=== PATIENT | male | born 1965 | race Caucasian/White ===

== ENCOUNTER 2020-07-24 22:33 | Emergency (ER) | payer SELFPAY ==
[~2020-07-24] VITALS: Ht 180.3 cm; Wt 77.1 kg
[2020-07-25 03:05] VITALS: BP 163/91
== END 2020-07-25 03:43 | disposition left against medical advice (07) ==
LOC: EDBD 22:33 → ER 22:43
DX: S32.018A Other fracture of first lumbar vertebra, initial encounter for closed fracture (principal); S32.028A Other fracture of second lumbar vertebra, initial encounter for closed fracture; S32.19XA Other fracture of sacrum, initial encounter for closed fracture; V49.59XA Passenger injured in collision with other motor vehicles in traffic accident, initial encounter; Y93.89 Activity, other specified; Y92.488 Other paved roadways as the place of occurrence of the external cause; Y99.8 Other external cause status
CPT/HCPCS: 72131; 74176; 99285; J7030

== ENCOUNTER 2023-02-17 19:44 | Inpatient (IN) | payer SELFPAY ==
[~2023-02-17] VITALS: Ht 172.7 cm; Wt 88.9 kg
[2023-02-17 20:15] VITALS: PULSE 106; RESP 20; O2SAT 94
[2023-02-17] MEDS ORDERED: LORazepam 2MG/ML-1ML VIAL IV ONE (20:15)
[2023-02-17] MEDS ORDERED: levETIRAcetam 1000 mg/100ml 100 ML IV ONE (20:15)
[2023-02-17] MEDS ORDERED: SODIUM CHLORIDE 0.9% 1,000 ML IVB ONE (20:15)
[2023-02-17 20:24] LABS: Basophils # (auto) 0.1 10 ^3/uL (0-0.2); Basophils % (auto) 0.6 % (0.0-2.0); Eosinophils # (auto) 0.6 10 ^3/uL (0-0.8); Hemoglobin 15.6 g/dL (13.5-17.5)
[2023-02-17 20:26] LABS: Eosinophils % (auto) 3.1 % (0.0-7.0); Hematocrit 48.3 % (41.0-53.0); Lymphocytes # (auto) 4.7 10 ^3/uL (0.4-5.4); Lymphocytes % (auto) 26.1 % (10.0-50.0); Mean Corpuscular Hemoglobin 26.5 pg (28.0-32.0); Mean Corpuscular Hgb Conc. 32.3 g/dL (32.0-36.0); Mean Corpuscular Volume 82.1 fL (80.0-100.0); Monocytes # (auto) 1.9 10 ^3/uL (0-1.3); Monocytes % (auto) 10.5 % (0.0-12.0); Neutrophils # (auto) 10.8 10 ^3/uL (1.6-8.6); Neutrophils % (auto) 59.7 % (37.0-80.0); Nucleated Red Blood Cells % 0.2 %; Red Blood Cells 5.89 10^6/uL (4.5-5.90); Red Cell Distribution Width 14.2 % (11.8-14.3)
[2023-02-17 20:50] LABS: Alanine Aminotransferase 17 U/L (7-40); Albumin 4.5 g/dL (3.2-4.8); Alkaline Phosphatase 71 U/L (46-116); Anion Gap 9 (5-15); Aspartate Aminotransferase 19 U/L (13-40); BUN/Creatinine Ratio 11.8 (10.0-20.0); Bilirubin, Total 0.9 mg/dL (0.2-1.0); Blood Urea Nitrogen 16 mg/dL (9-23); Calcium 8.9 mg/dL (8.7-10.4); Carbon Dioxide 26 mmol/L (20-30); Chloride 105 mmol/L (98-107); Glucose 132 mg/dL (74-106); Magnesium 2.1 mg/dL (1.6-2.6); Potassium 3.6 mmol/L (3.5-5.1); Sodium 140 mmol/L (136-145); Total Protein 7.3 g/dL (5.7-8.2)
[2023-02-17 20:52] LABS: Partial Thromboplastin Time 25.5 SEC (24.5-34.5); Prothrombin Time 10.5 sec (9.3-11.8)
[2023-02-18] MEDS ORDERED: VANCOMYCIN PER PHARMACY 0 MG IV SCH (00:15)
[2023-02-18] MEDS ORDERED: ASPirin 81 mg TAB PO ONE (00:15)
[2023-02-18] MEDS ORDERED: DOCUSATE SOD 100 MG CAP PO PRN (00:15)
[2023-02-18] MEDS ORDERED: cefTRIAXone 1GM/50ML D5W 50 ML IV ONE (00:15)
[2023-02-18] MEDS ORDERED: ONDANSETRON HCL 4 MG/2 ML VIAL IV PRN (00:15)
[2023-02-18] MEDS ORDERED: HYDROcodone-ACET 5/325MG TAB PO PRN (00:15)
[2023-02-18] MEDS ORDERED: hydrALAZINE HCL 20 MG/ML VL IV PRN (00:15)
[2023-02-18] MEDS ORDERED: ACETAMINOPHEN 325 MG TAB PO PRN (00:15)
[2023-02-18] MEDS ORDERED: VANCOMYCIN 1GM/250ML 250 ML IV SCH (00:30)
[2023-02-18] MEDS ORDERED: MORPHINE SULFATE INJ 2 MG/ml SYRG IV PRN (01:45)
[2023-02-18] MEDS ORDERED: NITROGLYCERIN 0.4 MG SL TAB SL PRN (01:45)
[2023-02-18] MEDS: SODIUM CHLOR 0.9% PF (SALINE LOCK) 10ML VIAL/SYR IV SCH ×3 (05:56→21:49)
[2023-02-18 06:40] LABS: Basophils # (auto) 0.1 10 ^3/uL (0-0.2); Basophils % (auto) 0.7 % (0.0-2.0); Eosinophils # (auto) 0.4 10 ^3/uL (0-0.8); Mean Corpuscular Volume 82.1 fL (80.0-100.0); White Blood Cell 11.9 10^3/uL (4.4-10.8)
[2023-02-18 06:44] LABS: Eosinophils % (auto) 3.5 % (0.0-7.0); Hematocrit 42.7 % (41.0-53.0); Lymphocytes # (auto) 2.4 10 ^3/uL (0.4-5.4); Lymphocytes % (auto) 20.1 % (10.0-50.0); Mean Corpuscular Hgb Conc. 32.9 g/dL (32.0-36.0); Monocytes # (auto) 1.2 10 ^3/uL (0-1.3); Monocytes % (auto) 10.1 % (0.0-12.0); Neutrophils # (auto) 7.8 10 ^3/uL (1.6-8.6); Neutrophils % (auto) 65.6 % (37.0-80.0); Red Cell Distribution Width 14.1 % (11.8-14.3)
[2023-02-18 07:18] LABS: Urine Bacteria NONE SEEN /hpf (None Seen); Urine Blood Negative /uL (Negative); Urine Clarity Clear (Clear); Urine Color Yellow (Yellow); Urine Hyaline Cast FEW /lpf (0 - 2); Urine Mucus FEW (None Seen); Urine Protein, UAD TRACE (Negative); Urine Specific Gravity 1.021 (1.001-1.035); Urine Urobilinogen Normal (Negative); Urine WBC 7 /hpf (0 - 3); Urine pH 5.5 (5.0-8.0)
[2023-02-18 07:40] VITALS: PULSE 66; RESP 12; O2SAT 96
[2023-02-18 07:46] LABS: Amphetamine Screen, Urine Pos (NEGATIVE); Barbiturate Scree,Urine Neg (NEGATIVE); Benzodiazephine Screen, Urine Neg (NEGATIVE); Cocaine Screen, Urine Neg (NEGATIVE)
[2023-02-18 07:47] LABS: Cannabinoid Screen, Urine Pos (NEGATIVE); Opiate Scree,Urine Neg (NEGATIVE); Phencyclidine Screen, Urine Neg (NEGATIVE)
[2023-02-18 07:57] LABS: Alanine Aminotransferase 13 U/L (7-40); Albumin 3.6 g/dL (3.2-4.8); Alkaline Phosphatase 58 U/L (46-116); Anion Gap 8 (5-15); Aspartate Aminotransferase 16 U/L (13-40); BUN/Creatinine Ratio 14.7 (10.0-20.0); Bilirubin, Total 0.6 mg/dL (0.2-1.0); Blood Urea Nitrogen 15 mg/dL (9-23); Calcium 8.3 mg/dL (8.5-10.1); Carbon Dioxide 23 mmol/L (20-30); Chloride 112 mmol/L (98-107); Glucose 94 mg/dL (74-106); Potassium 3.7 mmol/L (3.5-5.1); Sodium 143 mmol/L (136-145)
[2023-02-18] MEDS: ASPirin 81 mg TAB PO SCH (11:56)
[2023-02-18] MEDS: levETIRAcetam 1000 mg/100ml 100 ML IV SCH ×2 (11:58→21:48)
[2023-02-18] MEDS: AZITHROMYCIN 500MG/ 250ML 250 ML IV SCH (12:20)
[2023-02-18] MEDS: VANCOMYCIN 750mg/250ml 250 ML IV SCH (13:34)
[2023-02-18 18:36] VITALS: BP 116/80; PULSE 93; RESP 18; TEMP 97.7; O2SAT 95
[2023-02-18] MEDS ORDERED: TAMS-35 PO (19:21)
[2023-02-18] MEDS ORDERED: LORazepam 2MG/ML-1ML VIAL IV PRN (19:30)
[2023-02-18 20:00] VITALS: PULSE 76; PULSE 77; RESP 18; O2SAT 93
[2023-02-18 22:00] VITALS: BP 116/80; PULSE 76; RESP 18; TEMP 97.9; O2SAT 93
[2023-02-19] VITALS (7 sets, daily range): BP systolic 114–129; BP diastolic 69–80; PULSE 65–89; RESP 16–20; TEMP 98–98.6; O2SAT 92–96
[2023-02-19] MEDS: VANCOMYCIN 750mg/250ml 250 ML IV SCH ×2 (01:00→15:38)
[2023-02-19] MEDS: SODIUM CHLOR 0.9% PF (SALINE LOCK) 10ML VIAL/SYR IV SCH ×3 (06:24→21:50)
[2023-02-19 06:57] LABS: Basophils # (auto) 0.1 10 ^3/uL (0-0.2); Basophils % (auto) 0.6 % (0.0-2.0); Eosinophils # (auto) 0.5 10 ^3/uL (0-0.8); Eosinophils % (auto) 5.3 % (0.0-7.0); Hematocrit 43.1 % (41.0-53.0); Hemoglobin 14.1 g/dL (13.5-17.5); Lymphocytes # (auto) 1.8 10 ^3/uL (0.4-5.4); Lymphocytes % (auto) 19.7 % (10.0-50.0); Mean Corpuscular Hgb Conc. 32.8 g/dL (32.0-36.0); Mean Corpuscular Volume 82.3 fL (80.0-100.0); Monocytes # (auto) 0.9 10 ^3/uL (0-1.3); Monocytes % (auto) 9.6 % (0.0-12.0); Neutrophils # (auto) 6.1 10 ^3/uL (1.6-8.6); Neutrophils % (auto) 64.8 % (37.0-80.0); Red Blood Cells 5.24 10^6/uL (4.5-5.90); White Blood Cell 9.4 10^3/uL (4.4-10.8)
[2023-02-19 07:06] LABS: Alanine Aminotransferase 14 U/L (7-40); Albumin 3.6 g/dL (3.2-4.8); Alkaline Phosphatase 61 U/L (46-116); Anion Gap 4 (5-15); Aspartate Aminotransferase 11 U/L (13-40); BUN/Creatinine Ratio 12.9 (10.0-20.0); Bilirubin, Total 0.9 mg/dL (0.2-1.0); Blood Urea Nitrogen 15 mg/dL (9-23); Calcium 8.3 mg/dL (8.7-10.4); Carbon Dioxide 27 mmol/L (20-30); Chloride 110 mmol/L (98-107); Glucose 85 mg/dL (74-106); Potassium 4.1 mmol/L (3.5-5.1); Sodium 141 mmol/L (136-145)
[2023-02-19] MEDS: levETIRAcetam 1000 mg/100ml 100 ML IV SCH ×2 (09:07→21:50)
[2023-02-19] MEDS: ASPirin 81 mg TAB PO SCH (09:07)
[2023-02-19] MEDS: AZITHROMYCIN 500MG/ 250ML 250 ML IV SCH (09:07)
[2023-02-19] MEDS ORDERED: HALOPERIDOL LACTATE 5 MG/ML INJ VIAL IM PRN (12:00)
[2023-02-20] MEDS: VANCOMYCIN 750mg/250ml 250 ML IV SCH ×2 (01:07→08:28)
[2023-02-20 05:00] VITALS: BP 119/73; PULSE 64; RESP 18; TEMP 97.8; O2SAT 97
[2023-02-20] MEDS: SODIUM CHLOR 0.9% PF (SALINE LOCK) 10ML VIAL/SYR IV SCH ×2 (06:00→14:00)
[2023-02-20 07:04] LABS: Chloride 107 mmol/L (98-107); Potassium 4.4 mmol/L (3.5-5.1); Sodium 138 mmol/L (136-145)
[2023-02-20 07:05] LABS: Anion Gap 6 (5-15); Carbon Dioxide 25 mmol/L (20-30)
[2023-02-20 07:06] LABS: Calcium 8.8 mg/dL (8.7-10.4)
[2023-02-20 07:11] LABS: BUN/Creatinine Ratio 12.6 (10.0-20.0); Basophils # (auto) 0.1 10 ^3/uL (0-0.2); Blood Urea Nitrogen 13 mg/dL (9-23); Eosinophils # (auto) 0.7 10 ^3/uL (0-0.8); Glucose 96 mg/dL (74-106); Lymphocytes # (auto) 2.3 10 ^3/uL (0.4-5.4); Monocytes # (auto) 0.9 10 ^3/uL (0-1.3); Nucleated Red Blood Cells % 0.1 %
[2023-02-20 07:15] LABS: Basophils % (auto) 0.7 % (0.0-2.0); Eosinophils % (auto) 7.4 % (0.0-7.0); Hematocrit 43.2 % (41.0-53.0); Hemoglobin 14.3 g/dL (13.5-17.5); Lymphocytes % (auto) 25.7 % (10.0-50.0); Mean Corpuscular Hemoglobin 27.2 pg (28.0-32.0); Mean Corpuscular Hgb Conc. 33.2 g/dL (32.0-36.0); Mean Corpuscular Volume 81.9 fL (80.0-100.0); Monocytes % (auto) 10.3 % (0.0-12.0); Neutrophils # (auto) 4.9 10 ^3/uL (1.6-8.6); Neutrophils % (auto) 55.9 % (37.0-80.0); Red Blood Cells 5.27 10^6/uL (4.5-5.90); Red Cell Distribution Width 13.8 % (11.8-14.3); White Blood Cell 8.8 10^3/uL (4.4-10.8)
[2023-02-20 08:00] VITALS: PULSE 59; PULSE 75; RESP 17; O2SAT 96
[2023-02-20 08:03] LABS: Platelet Estimate Decreased
[2023-02-20] MEDS: levETIRAcetam 1000 mg/100ml 100 ML IV SCH (08:28)
[2023-02-20] MEDS: ASPirin 81 mg TAB PO SCH (08:34)
[2023-02-20] MEDS: AZITHROMYCIN 500MG/ 250ML 250 ML IV SCH (08:34)
[2023-02-20 10:12] VITALS: BP 122/80; PULSE 60; RESP 17; TEMP 97.9; O2SAT 96
[2023-02-20 12:36] VITALS: BP 144/102; PULSE 66; RESP 20; TEMP 97.9; O2SAT 97
[2023-02-20] MEDS ORDERED: KEP500T PO (15:35)
[2023-02-20 16:37] VITALS: BP 133/82; PULSE 67; RESP 19; TEMP 36.6; O2SAT 98
[2023-02-20 16:56] VITALS: BP 133/82; PULSE 67; RESP 19; TEMP 97.3; O2SAT 98
== END 2023-02-20 18:00 | disposition home or self-care (01) | DRG 101 ==
LOC: EDBD 19:44 → ER 19:44 → TELE 02-18 01:35 → TELE-WESTW 02-18 18:16
PROVIDERS: ADMIT Nurse Practitioner Family; ATTEND Nurse Practitioner Acute Care
DX: R56.9 Unspecified convulsions (principal); D69.6 Thrombocytopenia, unspecified; D72.829 Elevated white blood cell count, unspecified; F17.210 Nicotine dependence, cigarettes, uncomplicated; I10 Essential (primary) hypertension; Z79.899 Other long term (current) drug therapy
CPT/HCPCS: 36415; 70450; 71045; 80048; 80053; 80202; 80307; 80320; 81001; 82962; 83605; 83735; 84484; 85025; 85610; 85730; 87040; 93005; 96365; G0378; J0696

== ENCOUNTER 2023-09-12 11:36 | Emergency (ER) | payer MEDICAID ==
[~2023-09-12] VITALS: Ht 172.7 cm; Wt 68.5 kg
[~2023-09-12 11:36] MED LIST: KEP500T PO; TAMS-35 PO
[2023-09-12 14:34] VITALS: BP 114/88; PULSE 92; RESP 16; TEMP 98.8; O2SAT 98
[2023-09-12 15:08] LABS: Basophils # (auto) 0.1 10 ^3/uL (0-0.2); Basophils % (auto) 0.5 % (0.0-2.0); Eosinophils # (auto) 0.1 10 ^3/uL (0-0.8); Eosinophils % (auto) 0.8 % (0.0-7.0); Hematocrit 47.4 % (41.0-53.0); Lymphocytes % (auto) 18.4 % (10.0-50.0); Mean Corpuscular Hgb Conc. 33.6 g/dL (32.0-36.0); Mean Corpuscular Volume 83.2 fL (80.0-100.0); Monocytes # (auto) 1.9 10 ^3/uL (0-1.3); Monocytes % (auto) 11.6 % (0.0-12.0); Neutrophils # (auto) 11.3 10 ^3/uL (1.6-8.6); Neutrophils % (auto) 68.7 % (37.0-80.0); Red Cell Distribution Width 14.4 % (11.8-14.3); White Blood Cell 16.5 10^3/uL (4.4-10.8)
[2023-09-12 15:20] LABS: Chloride 107 mmol/L (98-107); Potassium 3.8 mmol/L (3.5-5.1); Sodium 136 mmol/L (136-145)
[2023-09-12 15:21] LABS: Anion Gap 5 (5-15); Calcium 9.6 mg/dL (8.5-10.1); Carbon Dioxide 24 mmol/L (20-30)
[2023-09-12 15:26] LABS: Blood Urea Nitrogen 8 mg/dL (9-23); Glucose 92 mg/dL (74-106)
[2023-09-12] MEDS ORDERED: BACDST PO (17:38)
== END 2023-09-12 16:34 | disposition left against medical advice (07) ==
LOC: ER 11:36
DX: Z53.29 Procedure and treatment not carried out because of patient's decision for other reasons (principal); I10 Essential (primary) hypertension; F17.210 Nicotine dependence, cigarettes, uncomplicated; F12.10 Cannabis abuse, uncomplicated
CPT/HCPCS: 36415; 73200; 80048; 85025

== ENCOUNTER 2025-01-27 16:23 | Emergency (ER) | payer MEDICAID ==
[~2025-01-27] VITALS: Ht 172.7 cm; Wt 65.7 kg
[~2025-01-27 16:23] MED LIST changes: +BACDST PO
[2025-01-27 16:26] VITALS: BP 134/93; PULSE 109; RESP 16; TEMP 97.7; O2SAT 98
--- NOTE | 2025-01-27 17:04 | ED.PDOC ---
General HPI Comments 59 year old male with PMHx HTN presents to the ED wit a chief complaint of suprapubic pain onset today around 14:00. Patient states he was placing an alternator when he began experiencing sharp suprapubic pain, noticed a bulge. Pain worsens with movement. Denies trauma, fall, dysuria, hematuria, nausea, vomiting, diarrhea, headache. No other symptoms or modifying factors present at this time. Chief Complaint: Testicle Pain Time Seen by MD: 16:50 Reviewed notes: Nurses Notes, Medications, Allergies Allergies: Coded Allergies: NO KNOWN ALLERGIES (Unverified , 07/24/20) Home Meds Active Scripts Sulfamethoxazole W/Trimethopri (Bactrim Ds Tablet) 1 Tab Tb, 1 TAB PO BID for 7 Days, #14 TAB 0 Refills Prov:LOUISE NGUYEN ACCESS ANALYST 09/12/23 Levetiracetam (KEPPRA TABLET) 500 Mg Tb, 500 MG PO BID for 30 Days, #60 TAB Prov:MARELY LAL ACCESS ANALYST 02/20/23 Reported Medications Tamsulosin Hcl (Flomax) 0.4 Mg Cap, 1 CAP PO DAILY, #30 CAP 11 Refills 02/18/23 Information Source: Patient Mode of Arrival: Ambulatory Severity: Moderate Timing: Hours Duration: Since onset Prehospital treatment: None Onset: Spontaneous Symptoms: None History of: None Location: Suprapubic Penile discharge: None Modifying factors: None Past Medical History PAST MEDICAL HISTORY: HTN Surgical History: Denies all surgeries Family History Family History: Reviewed,noncontributory to illness Social History Smoker: Cigarettes, Less Than 1 Pack/Day Alcohol: Occasionally Drugs: Marijuana Lives In: Home Constitutional: denies: chills, diaphoresis, fatigue, fever, malaise, sweats, weakness, others EENTM: denies: blurred vision, double vision, ear bleeding, ear discharge, ear drainage, ear pain, ear ringing, eye pain, eye redness, hearing loss, mouth pain, mouth swelling, nasal discharge, nose bleeding, nose congestion, nose pain, photophobia, tearing, throat pain, throat swelling, voice changes, others Respiratory: denies: cough, hemoptysis, orthopnea, SOB at rest, shortness of breath, SOB with excertion, stridor, wheezing, others Cardiovascular: denies: chest pain, dizzy spells, diaphoresis, Dyspnea on exertion, edema, irregular heart beat, left arm pain, lightheadedness, palpitations, PND, syncope, others Gastrointestinal: denies: abdomen distended, abdominal pain, blood streaked bowels, constipated, diarrhea, dysphagia, difficulty swallowing, hematemesis, melena, nausea, poor appetite, poor fluid intake, rectal bleeding, rectal pain, vomiting, others Genitourinary: reports: pain; denies: burning, dysuria, flank pain, frequency, hematuria, incontinence, penile discharge, penile sore, testicle pain, testicle swelling, urgency, others Neurological: denies: dizziness, fainting, headache, left sided numbness, left sided weakness, numbness, paresthesia, pre-existing deficit, right sided numbness, right sided weakness, seizure, speech problems, tingling, tremors, weakness, others Musculoskeletal: denies: back pain, gout, joint pain, joint swelling, muscle pain, muscle stiffness, neck pain, others Integumetry: denies: bruises, change in color, change in hair/nails, dryness, laceration, lesions, lumps, rash, wounds, others Allergic/Immunocompromised: denies: Difficulty Healing, Frequent Infections, Hives, Itching, others Hematologic/Lymphatic: denies: anemia, blood clots, easy bleeding, easy brui sing, swollen glands, others Endocrine: denies: excessive hunger, excessive sweating, excessive thirst, ex cessive urination, flushing, intolerance to cold, intolerance to heat, unexplained weight gain, unexplained weight loss, others Psychiatric: denies: anxiety, bipolar disorder, depression, hopeless, panic disorder, schizophrenia, sleepless, suicidal, others All Other Systems: Reviewed and Negative Physical Exam General Appearance: Normal HEENT: Normal ENT Inspection, Pharynx Normal, TMs Normal Neck: Full Range of Motion, Non-Tender, Normal, Normal Inspection Respiratory: Chest Non-Tender, Lungs Clear, No Accessory Muscle Use, No Respiratory Distress, Normal Breath Sounds Cardiovascular: No Edema, No JVD, No Murmur, No Gallop, Normal Peripheral Pulses, Regular Rate/Rhythm Breast Exam: Deferred Gastrointestinal: No Organomegaly, Non Tender, No Pulsatile Mass, Normal Bowel Sounds, Soft Genitalia: Deferred Pelvic: Other Rectal: Deferred Extremities: No calf tenderness, Normal capillary refill, Normal inspection, Normal range of motion, Non-tender, No pedal edema Musculoskeletal : Apperance: Normal Neurologic: Alert, wash crew person II-XII nml as Tested, No Motor Deficits, Normal Affect, Normal Mood, No Sensory Deficits Cerebellar Function: Normal Reflexes: Normal Skin: Dry, Normal Color, Warm Lymphatic: No Adenopathy Was a procedure done? Was a procedure done?: No Differential Diagnosis Kidney stone (Female): N/A Penile/Scrotal: Fractured Penis, Phimosis, Hydrocele, Testicular Torsion X-Ray, Labs, Meds, VS Vital Signs Date Time Temp Pulse Resp B/P (MAP) Pulse Ox O2 Delivery O2 Flow Rate FiO2 01/27/25 16:26 97.7 109 16 134/93 98 97.7 X-Ray, Labs, Meds, VS Comment LEFT-SIDED INGUINAL HERNIA WAS ABLE TO BE REDUCED. PATIENT TOLERATED WELL. PATIENT REPORTS GOOD PAIN RELIEF POSTREDUCTION Time of 1ST Reevaluation: 17:20 Reevaluation 1ST: Unchanged Patient Education/Counseling: Diagnosis, Treatment, Need For Follow Up (FOLLOW UP WITH PCP FOR GENERAL SURGEON APPOINTMENT) Family Education/Counseling: No Family Present SEPSIS Sepsis Screen Date sepsis recognized/suspect: Jan 27, 2025 Time Sepsis recognized/suspect: 1630 Recent Procedure: No On Antibiotic Therapy: No Respiratory Rate >20: No Heart Rate >90: Yes Temp<36 C (96.8 F) or >38.3 C: No SBP <90 or MAP <65 mmHG: No New Acute Mental Status Change: No Is the patient on CPAP, BIPAP,: No Vital Signs Date Time Temp Pulse Resp B/P (MAP) Pulse Ox O2 Delivery O2 Flow Rate FiO2 01/27/25 16:26 97.7 109 16 134/93 98 97.7 Departure 1 Departure Time of Disposition: 18:10 Impression: Primary Impression: Inguinal hernia Qualified Codes: K40.90 - Unilateral inguinal hernia, without obstruction or gangrene, not specified as recurrent Disposition: 01 HOME / SELF CARE / HOMELESS Condition: Fair Discharged With: Self Critical Care Note Critical Care Time?: No Stability Stability form required: No Heart Score Heart Score: Heart Score Response (Comments) Value History N/A 0 EKG N/A 0 Age N/A 0 Risk Factors N/A 0 Troponin N/A 0 Total 0 I personally scribed for JOHAN MONTOYA ([email or web address]) on 01/27/25 at 17:04. Electronically submitted by Margarita Sanchez ([email or web address]). JOHAN MONTOYA Jan 27, 2025 17:04
== END 2025-01-27 18:12 | disposition home or self-care (01) ==
LOC: ER 16:23
DX: K40.90 Unilateral inguinal hernia, without obstruction or gangrene, not specified as recurrent (principal); I10 Essential (primary) hypertension; F17.210 Nicotine dependence, cigarettes, uncomplicated; N50.819 Testicular pain, unspecified; Z79.899 Other long term (current) drug therapy

== ENCOUNTER 2025-02-19 09:07 | Inpatient (IN) | payer MEDICAID ==
[~2025-02-19] VITALS: Ht 172.7 cm; Wt 70.9 kg
--- NOTE | 2025-02-19 09:42 | ED.PDOC ---
SOB-HPI HPI Comments 59-year-old male with a past medical history of asthma, BPH, seizure, hype rtension with no significant surgical history has come to the ER with chief complaints of shortness of breaths. Patient reports that for the past 2 days he has been feeling increased shortness of breaths, increased when lying down at night, not relieved with the albuterol inhaler he uses p.r.n., associated with yellowish brown productive cough, nausea, subjective fever and chills. Patient denies any chest pain, vomiting, GERD symptoms, abdominal pain, recent sick contacts, travel history but admits to smoking 1 cigar per day. Chief Complaint: Shortness of Breath Time Seen by MD: 09:21 Reviewed notes: Medications, Allergies Information Source: Patient Mode of Arrival: Ambulatory Severity: Mild Timing: Days Duration: Intermittent Context: Other (On lying down) PE Risk Factors: Other History of: Asthma Prehospital treatment: None Modifying Factors: Nothing Associated Signs and Symptoms: Fever, Cough If cough with SOB: Productive, Yellow, Brown Past Medical History PAST MEDICAL HISTORY: Asthma, HTN, Seizures Past Medical History (Other): BPH Surgical History: Denies all surgeries Family History Family History: Reviewed,noncontributory to illness Social History Smoker: Cigar Alcohol: Occasionally Drugs: Marijuana Lives In: Home Constitutional: reports: chills, fever; denies: diaphoresis, fatigue, malaise, sweats, weakness, others EENTM: denies: blurred vision, double vision, ear bleeding, ear discharge, ear drainage, ear pain, ear ringing, eye pain, eye redness, hearing loss, mouth pain, mouth swelling, nasal discharge, nose bleeding, nose congestion, nose pain, photophobia, tearing, throat pain, throat swelling, voice changes, others Respiratory: reports: cough, SOB at rest; denies: hemoptysis, orthopnea, shortness of breath, SOB with excertion, stridor, wheezing, others Cardiovascular: denies: chest pain, dizzy spells, diaphoresis, Dyspnea on exertion, edema, irregular heart beat, left arm pain, lightheadedness, palpitations, PND, syncope, others Gastrointestinal: denies: abdomen distended, abdominal pain, blood streaked bowels, constipated, diarrhea, dysphagia, difficulty swallowing, hematemesis, melena, nausea, poor appetite, poor fluid intake, rectal bleeding, rectal pain, vomiting, others Genitourinary: denies: burning, dysuria, flank pain, frequency, hematuria, incontinence, penile discharge, penile sore, pain, testicle pain, testicle swelling, urgency, others Neurological: denies: dizziness, fainting, headache, left sided numbness, left sided weakness, numbness, paresthesia, pre-existing deficit, right sided numbness, right sided weakness, seizure, speech problems, tingling, tremors, weakness, others Musculoskeletal: denies: back pain, gout, joint pain, joint swelling, muscle pain, muscle stiffness, neck pain, others Integumetry: denies: bruises, change in color, change in hair/nails, dryness, laceration, lesions, lumps, rash, wounds, others Allergic/Immunocompromised: denies: Difficulty Healing, Frequent Infections, Hives, Itching, others Hematologic/Lymphatic: denies: anemia, blood clots, easy bleeding, easy bruising, swollen glands, others Endocrine: denies: excessive hunger, excessive sweating, excessive thirst, excessive urination, flushing, intolerance to cold, intolerance to heat, unexplained weight gain, unexplained weight loss, others Psychiatric: denies: anxiety, bipolar disorder, depression, hopeless, panic disorder, schizophrenia, sleepless, suicidal, others Physical Exam General Appearance: Normal HEENT: Normal ENT Inspection Neck: Full Range of Motion, Non-Tender Respiratory: Decreased Breath Sounds, No Accessory Muscle Use, Other (No wheezing, rhonchi or stridor heard) Cardiovascular: No Edema, No JVD, No Murmur, Regular Rate/Rhythm Breast Exam: Deferred Gastrointestinal: Non Tender, Normal Bowel Sounds, Other (No guarding, rebound tenderness or masses felt) Genitalia: Deferred Pelvic: Deferred Rectal: Deferred Extremities: Normal range of motion, Non-tender, No pedal edema Neurologic: Other (No sensorimotor deficits, power 5/5 in all extremities, no facial drooping) Cerebellar Function: Normal Reflexes: Normal Skin: Normal Color Lymphatic: Other (No cervical adenopathy palpated) Was a procedure done? Was a procedure done?: No Differential Dx Differential Diagnosis: Asthma, Bronchitis, CHF, Pneumonia X-Ray, Labs, Meds, VS Vital Signs Date Time Temp Pulse Resp B/P (MAP) Pulse Ox O2 Delivery O2 Flow Rate FiO2 02/19/25 10:21 20 95 Room Air* 0 21 02/19/25 09:44 97.6 106 20 130/87 (101) 98 97.6 02/19/25 09:09 97.6 109 20 144/98 98 97.6 Lab Test 02/19/25 10:04 02/19/25 10:00 Range/Units Urine Color Colorless Yellow Urine Clarity Clear Clear Urine pH 5.5 5.0-9.0 Urine Specific [place] 1.002 1.001-1.035 Urine Protein Negative Negative Urine Ketones Negative Negative Urine Blood Negative Negative /uL Urine Nitrite Negative Negative Urine Bilirubin Negative Negative Urine Urobilinogen Normal Negative mg/dL Urine Leukocyte Esterase Negative Negative /uL Urine RBC <1 0 - 3 /hpf Urine Microscopic WBC < 1 0-3 /HPF Urine Squamous Epithelial Cells None seen <5 /hpf Urine Bacteria None seen None Seen /hpf Urine Glucose Normal Normal mg/dL Urine Opiates Screen Neg NEGATIVE Urine Fentanyl Screen Neg NEGATIVE Urine Barbiturates Screen Neg NEGATIVE Urine Phencyclidine Screen Neg NEGATIVE Urine Amphetamines Screen Pos NEGATIVE Urine Benzodiazepines Screen Neg NEGATIVE Urine Cocaine Screen Neg NEGATIVE Urine Cannabinoids Screen Pos NEGATIVE White Blood Count 11.0 H 4.4-10.8 10^3/uL Red Blood Count 5.12 4.5-5.90 10^6/uL Hemoglobin 14.3 13.5-17.5 g/dL Hematocrit 42.6 41.0-53.0 % Mean Corpuscular Volume 83.2 80.0-100.0 fL Mean Corpuscular Hemoglobin 27.8 L 28.0-32.0 pg Mean Corpuscular Hemoglobin Concent 33.5 32.0-36.0 g/dL Red Cell Distribution Width 14.1 11.8-14.3 % Platelet Count 316 140-450 10^3/uL Mean Platelet Volume 7.9 6.9-10.8 fL Neutrophils (%) (Auto) 70.3 37.0-80.0 % Lymphocytes (%) (Auto) 20.9 10.0-50.0 % Monocytes (%) (Auto) 7.7 0.0-12.0 % Eosinophils (%) (Auto) 0.5 0.0-7.0 % Basophils (%) (Auto) 0.6 0.0-2.0 % Neutrophils # (Auto) 7.7 1.6-8.6 10 ^3/uL Lymphocytes # (Auto) 2.3 0.4-5.4 10 ^3/uL Monocytes # (Auto) 0.8 0-1.3 10 ^3/uL Eosinophils # (Auto) 0.1 0-0.8 10 ^3/uL Basophils # (Auto) 0.1 0-0.2 10 ^3/uL Nucleated Red Blood Cells 0.0 % Sodium Level 140 136-145 mmol/L Potassium Level 4.2 3.5-5.1 mmol/L Chloride Level 107 98-107 mmol/L Carbon Dioxide Level 24 20-31 mmol/L Anion Gap 9 5-15 Blood Urea Nitrogen 16 9-23 mg/dL Creatinine 1.26 0.700-1.30 mg/dL Glomerular Filtration Rate Calc 65 >90 mL/min BUN/Creatinine Ratio 12.7 10.0-20.0 Serum Glucose 105 74-106 mg/dL Calcium Level 9.3 8.7-10.4 mg/dL B-Type Natriuretic Peptide 794.96 0-100 pg/mL Current Medications Medications (Trade) Dose Ordered Sig/Lesly Route Start Time Stop Time Status Last Admin Ondansetron HCl (Zofran) 4 mg ONCE ONCE IV 02/19/25 09:30 02/19/25 09:36 DC 02/19/25 10:01 Methylprednisolone Sodium Succinate (Solu Medrol) 125 mg ONCE ONCE IV 02/19/25 09:30 02/19/25 09:36 DC 02/19/25 10:01 Albuterol (Ventolin Medneb) 5 mg ONCE ONCE NEB 02/19/25 09:30 02/19/25 09:37 DC 02/19/25 10:09 Ipratropium [place] (Atrovent Medneb) 0.5 mg ONCE ONCE NEB 02/19/25 09:30 02/19/25 09:36 DC 02/19/25 10:08 Chest XR indicates: 1. Hazy increased tissue density over the mid chest bilaterally were right worse than left. May be secondary to pectoral muscle or pulmonary airspace disease. Images Reviewed?: Images reviewed and evaluated by me Time of 1ST Reevaluation: 10:30 Reevaluation 1ST: Unchanged Patient Education/Counseling: Diagnosis, Treatment Family Education/Counseling: No Family Present Comments Patient to the ER with complaints of shortness of breaths and cough. Patient was given respiratory therapy with med nebulization ipratropium bromide 0.5 mg and albuterol 5 mg stat as well as methylprednisolone 125 mg IV[place] [address], heart rate 106, respiratory rate 20. Rest of the CBCs is WNL. BMP was WNL. UA was negative. Urine toxicology is positive for methamphetamine and cannabinoids. Chest x-ray shows 'Hazy increased tissue density over the mid chest bilaterally were right worse than left. May be secondary to pectoral muscle or pulmonary airspace disease'. BNP 794.96. Patient requires inpatient admission for further management of asthma and possible CHF. SEPSIS Sepsis Screen Date sepsis recognized/suspect: Feb 19, 2025 Time Sepsis recognized/suspect: 909 Recent Procedure: No On Antibiotic Therapy: No Respiratory Rate >20: No Heart Rate >90: Yes Temp<36 C (96.8 F) or >38.3 C: No SBP <90 or MAP <65 mmHG: No New Acute Mental Status Change: No Is the patient on CPAP, BIPAP,: No Physician Orders Chest Xray 1 View (02/19/25 09:30) Vital Signs Date Time Temp Pulse Resp B/P (MAP) Pulse Ox O2 Delivery O2 Flow Rate FiO2 02/19/25 10:21 20 95 Room Air* 0 21 02/19/25 09:44 97.6 106 20 130/87 (101) 98 97.6 02/19/25 09:09 97.6 109 20 144/98 98 97.6 Laboratory Tests Test 02/19/25 10:00 White Blood Count 11.0 10^3/uL (4.4-10.8) H Medications Medications Dose Ordered Sig/Lesly Route Start Time Stop Time Status Last Admin Dose Admin Albuterol 5 mg ONCE ONCE NEB 02/19/25 09:30 02/19/25 09:37 DC 02/19/25 10:09 Ipratropium [place] 0.5 mg ONCE ONCE NEB 02/19/25 09:30 02/19/25 09:36 DC 02/19/25 10:08 Methylprednisolone Sodium Succinate 125 mg ONCE ONCE IV 02/19/25 09:30 02/19/25 09:36 DC 02/19/25 10:01 Ondansetron HCl 4 mg ONCE ONCE IV 02/19/25 09:30 02/19/25 09:36 DC 02/19/25 10:01 Departure 1 Departure Time of Disposition: 11:00 Impression: Primary Impression: Acute diastolic heart failure Additional Impression: Acute hypoxic respiratory failure Disposition: ADMITTED INPATIENT Admit to: Tele Condition: Unstable Critical Care Note Critical Care Time?: No Stability Stability form required: No Heart Score Heart Score: Heart Score Response (Comments) Value History N/A 0 EKG N/A 0 Age N/A 0 Risk Factors N/A 0 Troponin N/A 0 Total 0 I personally scribed for CHACORTA VILLELA MD ([email or web address]) on 02/19/25 at 14:30. Elect ronically submitted by Nikko Bravo ([email or web address]). MISAEL MORENO RESIDENT Feb 19, 2025 09:42 CHACORTA VILLELA MD Feb 19, 2025 14:30
[2025-02-19 09:44] VITALS: BP 130/87; PULSE 106; TEMP 97.6
[2025-02-19] MEDS: methylPREDNISolone SOD SUCC 125 MG/2 ML VL IV ONE (10:01)
[2025-02-19] MEDS: ONDANSETRON HCL 4 MG/2 ML VIAL IV ONE (10:01)
[2025-02-19 10:07] LABS: Hematocrit 42.6 % (41.0-53.0); Hemoglobin 14.3 g/dL (13.5-17.5); Mean Corpuscular Hemoglobin 27.8 pg (28.0-32.0); Mean Corpuscular Volume 83.2 fL (80.0-100.0); Nucleated Red Blood Cells % 0.0 %
[2025-02-19] MEDS: IPRATROPIUM BROM 0.5 MG/2.5ML INH SOL NEB ONE (10:08)
[2025-02-19] MEDS: ALBUTEROL SULF 2.5 MG/0.5ML(0.5%) NEB SOLN NEB ONE (10:09)
[2025-02-19 10:18] LABS: Chloride 107 mmol/L (98-107); Potassium 4.2 mmol/L (3.5-5.1); Sodium 140 mmol/L (136-145)
[2025-02-19 10:19] LABS: Anion Gap 9 (5-15); Calcium 9.3 mg/dL (8.7-10.4); Carbon Dioxide 24 mmol/L (20-31)
[2025-02-19 10:21] VITALS: RESP 20; O2SAT 95
[2025-02-19 10:24] LABS: BUN/Creatinine Ratio 12.7 (10.0-20.0); Blood Urea Nitrogen 16 mg/dL (9-23); Glucose 105 mg/dL (74-106)
--- NOTE | 2025-02-19 10:30 | DVH ---
CHEST RADIOGRAPH Indication: sob Technique: Single frontal view of the chest was obtained Comparison: XY CHEST PORTABLE on DOS: 02/17/23 FINDINGS: Lines and Tubes: None Lungs: Hazy increased tissue density over the mid chest bilaterally. Findings may be secondary to pectoral muscle or airspace disease. Findings are slightly worse in the right than the left. Pleura: No effusion. No pneumothorax. Cardiomediastinal contours: Unremarkable Bones: No acute osseous abnormality. IMPRESSION: 1. Hazy increased tissue density over the mid chest bilaterally were right worse than left. May be secondary to pectoral muscle or pulmonary airspace disease.
[2025-02-19 10:36] LABS: Urine Protein, UAD Negative (Negative)
[2025-02-19 10:51] LABS: Amphetamine Screen, Urine Pos (NEGATIVE); Barbiturate Scree,Urine Neg (NEGATIVE); Benzodiazephine Screen, Urine Neg (NEGATIVE); Cannabinoid Screen, Urine Pos (NEGATIVE); Cocaine Screen, Urine Neg (NEGATIVE)
[2025-02-19 10:52] LABS: Opiate Scree,Urine Neg (NEGATIVE); Phencyclidine Screen, Urine Neg (NEGATIVE)
[2025-02-19] MEDS ORDERED: NITROGLYCERIN 0.4 MG SL TAB SL PRN (11:30)
--- NOTE | 2025-02-19 11:43 | DVHHP2 ---
History of Present Illness Reason for Visit: sob History of Present Illness 59-year-old male with past medical history of asthma, benign prostatic hyperplasia (BPH), seizures (last seizure 2 years ago, currently not on anti- seizure medications), hypertension, and inguinal hernia presents with a 2-day history of difficulty breathing. He denies fever but reports a productive cough with phlegm, without hemoptysis. He denies chest pain but endorses shortness of breath. Patient states he used his inhaler without relief. On evaluation in the ED, he was administered albuterol and Zofran. Labs revealed a white count of 11.0, basic metabolic panel was unremarkable, and BNP was elevated at 794.96. Urine drug screen was positive for methamphetamines. UA was negative. Patient had a noticeable marijuana odor and admitted to smoking earlier that morning. He declined to answer when asked about last methamphetamine use. He denies alcohol use. Patient was offered Social Work resources and admission for further management and workup, but he declined all, stating he preferred to go home. Risks and benefits of admission were discussed in detail. Patient understood and chose to sign out AMA. Past Medical History see hpi above Past Surgical History see hpi above Family History Reviewed, non-contributory to the management of this case. Past Social History Urine drug screen with meth positive patient declines to answer when he started marijuana he did this morning denies alcohol use Review of Systems Constitutional: No: Fever, Chills, Sweats, Weakness, Malaise, Other Eyes: No: Pain, Vision change, Conjunctivae inflammation, Eyelid inflammation, Other, Redness ENT: No: Ear pain, Ear discharge, Nose pain, Nose discharge, Nose congestion, Mouth pain, Mouth swelling, Throat pain, Throat swelling, Other Respiratory: Cough, Shortness of breath, SOB with excertion; No: Dry, Wheezing, Hemoptysis, Pleuritic Pain, Sputum, Wheezing, Other Cardiovascular: No: Chest Pain, Palpitations, Orthopnea, Paroxysmal Noc. Dyspnea, Edema, Lt Headedness, Other Gastrointestinal: No: Nausea, Vomiting, Abdominal Pain, Diarrhea, Constipation, Melena, Hematochezia, Other Genitourinary: No Dysuria, No Frequency, No Incontinence, No Hematuria, No Retention, No Other Musculoskeletal: No: other, neck pain, shoulder pain, arm pain, back pain, hand pain, leg pain, foot pain Skin: No: Rash, Lesions, Jaundice, Bruising, Other Neurological: No: Weakness, Numbness, Incoordination, Change in speech, Confusion, Seizures, Other Allergies: Coded Allergies: NO KNOWN ALLERGIES (Unverified , 07/24/20) Exam Vital Signs Vital Signs Date Time Temp Pulse Resp B/P (MAP) Pulse Ox O2 Delivery O2 Flow Rate FiO2 02/19/25 10:21 20 95 Room Air* 0 21 02/19/25 09:44 97.6 106 130/87 (101) 97.6 General Appearance: Alert, Oriented X3, Cooperative, mild distress HEENT: Atraumatic, PERRLA, EOMI, Mucous membr. moist/pink (diminished throught ) Respiratory: Other Cardiovascular: Regular rate, Normal S1, Normal S2, No murmurs Abdominal: Normal bowel sounds, Soft, No tenderness, No hepatospenomegaly, No masses Extremities: No clubbing, No cyanosis, No edema, Normal pulses, No tenderness/swelling Skin: No rashes, No breakdown, No significant lesion Neuro: Normal gait, Normal speech, Strength at 5/5 X4 ext, Normal tone, Sensation intact, Cranial nerves 3-12 NL Psych/Mental Status: Mental status NL, Mood NL Labs/Xrays I reviewed labs, imaging CT scan abdomen pelvis, EKG and all diagnostic studies on this patient from ED records and the medical chart cxr Hazy increased tissue density over the mid chest bilaterally were right worse than left. May be secondary to pectoral muscle or pulmonary airspace disease. Labs Test 02/19/25 10:04 02/19/25 10:00 Range/Units Urine Color Colorless Yellow Urine Clarity Clear Clear Urine pH 5.5 5.0-9.0 Urine Specific [place] 1.002 1.001-1.035 Urine Protein Negative Negative Urine Ketones Negative Negative Urine Blood Negative Negative /uL Urine Nitrite Negative Negative Urine Bilirubin Negative Negative Urine Urobilinogen Normal Negative mg/dL Urine Leukocyte Esterase Negative Negative /uL Urine RBC <1 0 - 3 /hpf Urine Microscopic WBC < 1 0-3 /HPF Urine Squamous Epithelial Cells None seen <5 /hpf Urine Bacteria None seen None Seen /hpf Urine Glucose Normal Normal mg/dL Urine Opiates Screen Neg NEGATIVE Urine Fentanyl Screen Neg NEGATIVE Urine Barbiturates Screen Neg NEGATIVE Urine Phencyclidine Screen Neg NEGATIVE Urine Amphetamines Screen Pos NEGATIVE Urine Benzodiazepines Screen Neg NEGATIVE Urine Cocaine Screen Neg NEGATIVE Urine Cannabinoids Screen Pos NEGATIVE White Blood Count 11.0 H 4.4-10.8 10^3/uL Red Blood Count 5.12 4.5-5.90 10^6/uL Hemoglobin 14.3 13.5-17.5 g/dL Hematocrit 42.6 41.0-53.0 % Mean Corpuscular Volume 83.2 80.0-100.0 fL Mean Corpuscular Hemoglobin 27.8 L 28.0-32.0 pg Mean Corpuscular Hemoglobin Concent 33.5 32.0-36.0 g/dL Red Cell Distribution Width 14.1 11.8-14.3 % Platelet Count 316 140-450 10^3/uL Mean Platelet Volume 7.9 6.9-10.8 fL Neutrophils (%) (Auto) 70.3 37.0-80.0 % Lymphocytes (%) (Auto) 20.9 10.0-50.0 % Monocytes (%) (Auto) 7.7 0.0-12.0 % Eosinophils (%) (Auto) 0.5 0.0-7.0 % Basophils (%) (Auto) 0.6 0.0-2.0 % Neutrophils # (Auto) 7.7 1.6-8.6 10 ^3/uL Lymphocytes # (Auto) 2.3 0.4-5.4 10 ^3/uL Monocytes # (Auto) 0.8 0-1.3 10 ^3/uL Eosinophils # (Auto) 0.1 0-0.8 10 ^3/uL Basophils # (Auto) 0.1 0-0.2 10 ^3/uL Nucleated Red Blood Cells 0.0 % Sodium Level 140 136-145 mmol/L Potassium Level 4.2 3.5-5.1 mmol/L Chloride Level 107 98-107 mmol/L Carbon Dioxide Level 24 20-31 mmol/L Anion Gap 9 5-15 Blood Urea Nitrogen 16 9-23 mg/dL Creatinine 1.26 0.700-1.30 mg/dL Glomerular Filtration Rate Calc 65 >90 mL/min BUN/Creatinine Ratio 12.7 10.0-20.0 Serum Glucose 105 74-106 mg/dL Calcium Level 9.3 8.7-10.4 mg/dL B-Type Natriuretic Peptide 794.96 0-100 pg/mL SEPSIS Sepsis Screen Date sepsis recognized/suspect: Feb 19, 2025 Time Sepsis recognized/suspect: 0910 Recent Procedure: No On Antibiotic Therapy: No Respiratory Rate >20: No Heart Rate >90: Yes Temp<36 C (96.8 F) or >38.3 C: No SBP <90 or MAP <65 mmHG: No New Acute Mental Status Change: No Is the patient on CPAP, BIPAP,: No Physician Orders Chest Xray 1 View (02/19/25 09:30) Vital Signs Date Time Temp Pulse Resp B/P (MAP) Pulse Ox O2 Delivery O2 Flow Rate FiO2 02/19/25 10:21 20 95 Room Air* 0 21 02/19/25 09:44 97.6 106 20 130/87 (101) 98 97.6 02/19/25 09:09 97.6 109 20 144/98 98 97.6 Laboratory Tests Test 02/19/25 10:00 White Blood Count 11.0 10^3/uL (4.4-10.8) H Medications Medications Dose Ordered Sig/Lesly Route Start Time Stop Time Status Last Admin Dose Admin Albuterol 5 mg ONCE ONCE NEB 02/19/25 09:30 02/19/25 09:37 DC 02/19/25 10:09 5 MG Ipratropium [place] 0.5 mg ONCE ONCE NEB 02/19/25 09:30 02/19/25 09:36 DC 02/19/25 10:08 0.5 MG Methylprednisolone Sodium Succinate 125 mg ONCE ONCE IV 02/19/25 09:30 02/19/25 09:36 DC 02/19/25 10:01 125 MG Ondansetron HCl 4 mg ONCE ONCE IV 02/19/25 09:30 02/19/25 09:36 DC 02/19/25 10:01 4 MG Assessment/Plan Assessment/Plan 59-year-old male with asthma and substance use presenting with shortness of breath, elevated BNP, and recent inhaler failure. Declined admission and signed out AMA. acute Shortness of breath, likely asthma exacerbation vs. CHF asthma exacerbation elevated bnp and sob likely new onset CHF Albuterol and supportive care given in ED BNP elevated at 794.96; CHF possible, but not seen on cxr will need admission for cardiac workup and asthma excerbation workup Patient declined admission and further cardiac workup Substance use (methamphetamine and marijuana) Urine drug screen positive for methamphetamine Marijuana use confirmed by patient Declined Social Work resources Seizure disorder (remote) No current antiepileptic medications No seizure reported today BPH No urinary complaints at this time Hypertension No elevated BP documented No complaints related to blood pressure Inguinal hernia No complaints today chronic problems Asthma BPH Seizure disorder Hypertension Inguinal hernia FEN / PPx Fluids: hl Electrolytes: BMP unremarkable Nutrition: diet DVT Prophylaxis: Not initiated due to AMA discharge GI Prophylaxis: Not indicated Disposition Patient declined admission after full discussion of risks and benefits, pt with capacity to make medical decisions Signed out AMA Advised to follow up with primary care physician for further evaluation and medication needs Instructed to return to ED if symptoms worsen Plan discussed with: Patient Date of Service: Feb 19, 2025 Billing Provider: EMILIA DELACRUZ DNP Common Visit Codes: [id number] INP/OBS CARE (HIGH) EMILIA DELACRUZ DNP Feb 19, 2025 11:43
== END 2025-02-19 11:26 | disposition left against medical advice (07) | DRG 141 ==
LOC: ER 09:07 → OVERFLOW 11:17
PROVIDERS: ADMIT Nurse Practitioner Family; ATTEND Nurse Practitioner Family
DX: J45.901 Unspecified asthma with (acute) exacerbation (principal); J96.01 Acute respiratory failure with hypoxia; I50.31 Acute diastolic (congestive) heart failure; I11.0 Hypertensive heart disease with heart failure; G40.909 Epilepsy, unspecified, not intractable, without status epilepticus; F15.90 Other stimulant use, unspecified, uncomplicated; N40.0 Benign prostatic hyperplasia without lower urinary tract symptoms; K40.90 Unilateral inguinal hernia, without obstruction or gangrene, not specified as recurrent; F17.210 Nicotine dependence, cigarettes, uncomplicated; Z53.29 Procedure and treatment not carried out because of patient's decision for other reasons; F12.90 Cannabis use, unspecified, uncomplicated
CPT/HCPCS: 36415; 71045; 80048; 80307; 81001; 83880; 85025; 94640; 96374; 96375; G0378; J2405

== ENCOUNTER 2025-02-21 04:31 | Inpatient (IN) | payer MEDICAID ==
[~2025-02-21] VITALS: Ht 172.7 cm; Wt 68.1 kg
[2025-02-21] MEDS ORDERED: AZITHROMYCIN 500MG/250ML 250 ML IV ONE (05:15)
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
[2025-02-21 05:51] LABS: Hematocrit 44.6 % (41.0-53.0); Hemoglobin 14.7 g/dL (13.5-17.5); Mean Corpuscular Hemoglobin 27.2 pg (28.0-32.0); Mean Corpuscular Volume 82.7 fL (80.0-100.0); Nucleated Red Blood Cells % 0.1 %
[2025-02-21 05:58] LABS: Chloride 105 mmol/L (98-107); Potassium 4.4 mmol/L (3.5-5.1); Sodium 140 mmol/L (136-145)
[2025-02-21 05:59] LABS: Anion Gap 8 (5-15); Carbon Dioxide 27 mmol/L (20-31)
[2025-02-21 06:00] LABS: Calcium 9.2 mg/dL (8.7-10.4)
[2025-02-21 06:04] LABS: BUN/Creatinine Ratio 23.1 (10.0-20.0)
[2025-02-21 06:08] LABS: Blood Urea Nitrogen 33 mg/dL (9-23); Glucose 114 mg/dL (74-106)
[2025-02-21] MEDS ORDERED: MORPHINE SULFATE INJ 2 MG/ml SYRG IV PRN ×2 (07:30)
[2025-02-21] MEDS ORDERED: ACETAMINOPHEN 325 MG TAB PO PRN (07:30)
[2025-02-21] MEDS ORDERED: ONDANSETRON HCL 4 MG/2 ML VIAL IV PRN (07:30)
[2025-02-21] MEDS ORDERED: NITROGLYCERIN 0.4 MG SL TAB SL PRN (07:30)
[2025-02-21] MEDS ORDERED: DOCUSATE SOD 100 MG CAP PO PRN (07:30)
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
--- NOTE | 2025-02-21 08:06 | DVH ---
AP portable chest CLINICAL INDICATION: check for pulmonary edema and CAP Comparison: 02/20/2020 FINDINGS: Heart size is slightly enlarged. Mild hazy appearance to the right mid and lower lung zones. Left lung clear. IMPRESSION: 1. Slight improvement in congestive changes from previous exam.
[2025-02-21] MEDS ORDERED: ATORVASTATIN 20 MG TAB PO SCH (08:15)
[2025-02-21] MEDS ORDERED: LACTATED RINGER'S 1,000 ML IV ONE (08:15)
[2025-02-21] MEDS: DOXYCYCLINE 100MG/100ML 100 ML IV ONE (08:19)
[2025-02-21 09:07] LABS: Triglycerides 103 mg/dL (< 150)
[2025-02-21 09:09] LABS: Cholesterol 165 mg/dL (< 200); HDL Cholesterol 48 mg/dL (40-59)
[2025-02-21 09:15] LABS: Albumin 4.0 g/dL (3.2-4.8); Bilirubin, Direct 0.2 mg/dL (<0.3); Bilirubin, Total 0.5 mg/dL (0.2-1.0); Total Protein 6.5 g/dL (5.7-8.2)
[2025-02-21 09:19] LABS: Alanine Aminotransferase 414.0 U/L (7-40); Alkaline Phosphatase 142.0 U/L (46-116)
[2025-02-21 09:20] LABS: COVID19 ANTIGEN SOFIA FIA NEGATIVE (NEGATIVE)
[2025-02-21] MEDS ORDERED: ENOXAPARIN SOD 40 MG/0.4 ML SYRINGE SC SCH (10:00)
[2025-02-21] MEDS ORDERED: FAMOTIDINE 20 MG TAB PO SCH (10:00)
[2025-02-21] MEDS ORDERED: levETIRAcetam 500 MG TAB PO SCH (10:00)
[2025-02-21] MEDS ORDERED: OSELTAMIVIR 30 MG CAP PO ONE (11:15)
[2025-02-21 11:57] VITALS: BP 133/100; PULSE 118; RESP 17; TEMP 97.7; O2SAT 100
[2025-02-21] MEDS ORDERED: ENOXAPARIN SOD 40 MG/0.4 ML SYRINGE SC ONE (13:00)
[2025-02-21] MEDS ORDERED: TAMSULOSIN HYDROCHLORIDE 0.4 MG CAP PO SCH (18:00)
[2025-02-21] MEDS ORDERED: DOXYCYCLINE 100MG/100ML 100 ML IV SCH (22:00)
[2025-02-21] MEDS ORDERED: OSELTAMIVIR 30 MG CAP PO SCH (22:00)
[2025-02-22] MEDS ORDERED: ENOXAPARIN SOD 40 MG/0.4 ML SYRINGE SC SCH (10:00)
[2025-02-23 10:38] LABS: Hepatitis A Total Antibody Positive (Negative); Hepatitis B Surface Antigen Negative (Negative); Hepatitis C Antibody Negative (Negative)
--- NOTE | 2025-02-24 06:35 | ECG ---
[facility] Test Date: 2025-02-21 Test Time: 05:43:54 Pat Name: LUIS HUNTER Department: ER Room: [address] [place] [address] A Gender: M [employer] Career Manager: SUMMER : 1965 Requested By: WILFREDO SIM Order Number: [id number] Reading MD: Austin Cooney Measurements Intervals [place] Rate: 112 P: 51 MS: 146 QRS: -31 QRSD: 101 T: 112 QT: 356 QTc: 486 Interpretive Statements Sinus tachycardia Left atrial enlargement LVH with secondary repolarization abnormality Borderline prolonged QT interval Electronically Signed On 02-26-2025 19:04:48 PST by Austin Cooney Please click the below link to view image of tracing.
--- NOTE | 2025-02-24 10:11 | ECG ---
[facility] Test Date: 2025-02-19 Test Time: 09:15:24 Pat Name: LUIS HUNTER Department: Room: [address] [place] [address] A Gender: M Insurance Coder: SHELIA : 1965 Requested By: EMELIA MELENDEZ Order Number: [id number] Reading MD: Austin Cooney Measurements Intervals [place] Rate: 110 P: 64 ID: [id number] QRS: 20 QRSD: 101 T: 125 QT: 350 QTc: 474 Interpretive Statements Sinus tachycardia LAE, consider biatrial enlargement LVH with secondary repolarization abnormality Electronically Signed On 02-26-2025 18:41:52 PST by Austin Cooney Please click the below link to view image of tracing.
== END 2025-02-21 14:00 | disposition left against medical advice (07) | DRG 194 ==
LOC: ER 04:31 → OVERFLOW 07:16
PROVIDERS: ADMIT Student in an Organized Health Care Education/Training Program; ATTEND Internal Medicine
DX: I11.0 Hypertensive heart disease with heart failure (principal); N17.0 Acute kidney failure with tubular necrosis; J69.0 Pneumonitis due to inhalation of food and vomit; J44.0 Chronic obstructive pulmonary disease with (acute) lower respiratory infection; J15.69 Pneumonia due to other Gram-negative bacteria; J15.9 Unspecified bacterial pneumonia; F15.10 Other stimulant abuse, uncomplicated; G40.909 Epilepsy, unspecified, not intractable, without status epilepticus; I50.9 Heart failure, unspecified; J44.1 Chronic obstructive pulmonary disease with (acute) exacerbation; I21.A1 Myocardial infarction type 2; Z20.822 Contact with and (suspected) exposure to COVID-19; E78.5 Hyperlipidemia, unspecified; N40.0 Benign prostatic hyperplasia without lower urinary tract symptoms; F17.210 Nicotine dependence, cigarettes, uncomplicated; F12.10 Cannabis abuse, uncomplicated; K40.90 Unilateral inguinal hernia, without obstruction or gangrene, not specified as recurrent
CPT/HCPCS: 36415; 71045; 80048; 80061; 80076; 83036; 83880; 84443; 84484; 85025; 86704; 86706; 86708; 86803; 87040; 87340; 87426; 87804; 93005; G0378